=== PATIENT | male | born 1970 | race Caucasian/White ===

== ENCOUNTER 2022-09-18 05:27 | Day surgery (SDC) | payer OTHER ==
[2022-09-18] MEDS ORDERED: Xylocaine-Mpf 2% 5 Ml Vial ONE (05:45)
[2022-09-18] MEDS ORDERED: Decadron 4 MG INJ ONE (05:45)
[2022-09-18] MEDS ORDERED: Zofran 4 MG/2 ML VIAL ONE (05:45)
[2022-09-18] MEDS ORDERED: DIPRIVAN 200 MG/20 ML IV ONE (05:46)
[2022-09-18] MEDS ORDERED: SUBLIMAZE 100 MCG/2 ML ONE (05:46)
[2022-09-18] MEDS ORDERED: CEFAZOLIN 2 GM-D5W BAG** 2 GM/50 ML ML IV SCH (06:00)
[2022-09-18] MEDS ORDERED: Lactated Ringers 1,000 ML IV SCH (06:00)
[2022-09-18 06:06] LABS: Hematocrit 47.3 % (42-50); Hemoglobin 15.9 g/dL (12.5-18.0); Mean Cell Volume 90.8 fL (78-100); Mean Corpuscular Hemoglobin 30.5 pg (26-32); Mean Corpuscular Hgb Concent. 33.6 g/dL (32-36); Mean Platelet Volume 7.8 fL (7.5-11.0); Platelet Count 276 x10^3/uL (150-450); Red Blood Count 5.21 x10^6/uL (4.1-5.6); Red Cell Distribution Width 13.8 % (11.5-14.0); White Blood Count 6.1 x10^3/uL (4.0-10.5)
[2022-09-18 06:19] LABS: ALBUMIN 3.7 g/dL (3.5-5.0); ALKALINE PHOSPHATASE 89 U/L (38-126); ANION GAP 13.4 MEQ/L (5-15); BLOOD UREA NITROGEN 14 mg/dL (9-20); CHLORIDE 102 mmol/L (98-107); Calcium 8.6 mg/dL (8.4-10.2); Carbon Dioxide 28 mmol/L (22-30); Creatinine 1 1.07 mg/dL (0.66-1.25); EST GLOMERULAR FILTRATION RATE > 60.0 ML/MIN; Glucose 96 mg/dL (74-106); SGOT/AST 30 U/L (17-59); SGPT/ALT 24 U/L (0-50); SODIUM 139 mmol/L (137-145); Total Protein 7.5 g/dL (6.3-8.2)
[2022-09-18] MEDS ORDERED: Quelicin Fliptop 200 MG/10 ML ONE (06:22)
[2022-09-18] MEDS ORDERED: Marcaine Mpf 0.5% Vial 30 Ml ONE (06:22)
[2022-09-18] MEDS ORDERED: XYLOCAINE 1% HCL 20 ML MDV ONE (06:23)
[2022-09-18] MEDS ORDERED: Zemuron 100 MG/10 ML ONE (07:14)
[2022-09-18] MEDS ORDERED: Pre-Attached Lta Kit TP ONE (07:15)
[2022-09-18] MEDS ORDERED: PHENYLEPHRINE HCL ONE (07:25)
[2022-09-18] MEDS ORDERED: Ephedrine Sulfate 50 MG/ML ONE ×2 (07:35→08:39)
[2022-09-18] MEDS ORDERED: BRIDION 200MG/2ML IV ONE (07:35)
[2022-09-18] MEDS ORDERED: ROBINUL ONE (08:42)
[2022-09-18] MEDS ORDERED: ATROPINE SULFATE 1MG ONE (08:47)
[2022-09-18 09:30] VITALS: BP 126/89; PULSE 83; O2SAT 98
--- NOTE | 2022-09-18 10:00 | OP ---
SURGERY DATE: 09/18/2022 SURGERY TIME: 714 PREOPERATIVE DIAGNOSIS: 1. LEFT ANKLE PAIN. 2. LEFT ANKLE SOFT TISSUE MASS. 3. LEFT FOOT PAIN. 4. CALLUS LEFT FOOT, FIFTH METATARSAL HEAD. POSTOPERATIVE DIAGNOSIS: 1. LEFT ANKLE PAIN. 2. LEFT ANKLE SOFT TISSUE MASS. 3. LEFT FOOT PAIN. 4. CALLUS LEFT FOOT, FIFTH METATARSAL HEAD. PROCEDURE: 1. Excision of soft tissue mass left ankle. 2. Callus debridement left foot X 1. SURGEON: Handy Young D.P.M. EMPLOYEE DEVELOPMENT MANAGER: None. ANESTHESIA: General. POSITION: Prone. HEMOSTASIS: A thigh tourniquet set to 300 mm Hg for 16 total tourniquet minutes. ESTIMATED BLOOD LOSS: Less than 5 cc. MATERIALS: 2-0 Vicryl, 3-0 Nylon. INJECTABLES: 10 cc of a 1:1 mixture of 1% Lidocaine plain and 0.5% Bupivacaine plain injected in the V block type fashion to the posterior heel overlying the soft tissue mass. INDICATIONS FOR PROCEDURE: Francisco is a very pleasant 52 y/o male who presented to my clinic for concerns over a cyst over the posterior aspect of his left ankle. The patient indicates that he did have some indications of this occurring on his hands in the past and does have a previous history of rheumatoid arthritis. However, that was a ganglion cyst that was excised. 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 However, the patient understands we will send this off for pathology for assessment and true diagnosis. The patient understands all risks, complications, and benefits of surgical intervention at this time including, but not limited to, infection; hematoma; seroma; possibility of delayed wound healing and skin healing. The patient has been advised of the fact that he is a chronic Prednisone user to reduce his use of Prednisone over the coming weeks while trying to heal and weeks before in conjunction with his rheumatoid guidelines. From that standpoint, no guarantees were provided as to the outcome. Possibility of recurrence is dependent based on what the cyst pathology resolves. However, we will do everything we can to prevent a recurrence in this case. It is with that we decided to proceed. DESCRIPTION OF PROCEDURE: The patient was brought in to the OR and placed under general anesthesia. At this time, a well-padded thigh tourniquet was applied to the patient's left thigh and the tourniquet was set to 300 mm Hg. At this time, the patient was transferred from the cart into the prone position safely protecting all prominent structures from pressure against the bed. At this time, the left lower extremity was prepped and draped in the typical sterile fashion and lowered onto the surgical field. At this time, an Esmarch was utilized to exsanguinate the leg and the tourniquet was inflated to 300 mm Hg. At this time, a 10 blade was utilized to make a lazy-S type incision over the cyst where the prominence was. Following this, the layers were deepened making sure not to damage any neurovascular structure. Using a pair of crown-collar scissors and a 15 blade, the mass was excised in total. The underlying soft tissue was then inspected. The paratenon to the tendon itself was largely intact with the exception of a distal opening. This was repaired utilizing 4-0 Monocryl. Following this, copious amounts of sterile were utilized to flush the surgical site and a 2-0 Vicryl was utilized to coapt the subcutaneous skin edges in a simple buried type fashion and the skin was then coapted in a horizontal mattress type fashion with the edges everted relative to the plane of the incision. At this time, a 10 blade was then utilized to debride the callus of the 5th metatarsal head. This was performed without incident. Following this, a dressing consisting of Betadine, Adaptic, 4 X 4, Kerlix, and Omar was then applied to the patient's left lower extremity with the foot orthogonal relative to the longitudinal axis of the leg. The patient was provided a postoperative boot and was reversed from anesthesia and returned to the postoperative anesthesia care unit with vital signs stable and vascular status intact. The patient handled the anesthesia as well as the procedure without significant complication. Postoperative orders as indicated in the patient's discharge chart.
== END 2022-09-18 10:00 | disposition home or self-care (01) ==
LOC: SDC 05:27
PROVIDERS: ATTEND Podiatrist Foot & Ankle Surgery
DX: R22.42 Localized swelling, mass and lump, left lower limb (principal); M25.572 Pain in left ankle and joints of left foot; M79.672 Pain in left foot; L84 Corns and callosities
CPT/HCPCS: 28039; 36415; 80053; 85027; 93005; J0330; J0461; J0690; J1100; J2370; J2405; J2704; J3010